=== PATIENT | female | born 1940 | race Caucasian/White ===

== ENCOUNTER → 2023-08-15 07:04 | Outpatient (REF) | payer MEDICARE, OTHER, SELFPAY ==
[2023-08-15 08:46] LABS: HDL Cholesterol 82 mg/dl; LDL Cholesterol, Calculated 79 mg/dl; Total Cholesterol 178 mg/dl (50-199); Triglyceride 89 mg/dl (10-149); Very Low Density Lipoprotein 17 mg/dl (0-30)
== END ==
LOC: HWLAB 07:04
PROVIDERS: ATTENDING PHYSICIAN Family Medicine
DX: E78.5 Hyperlipidemia, unspecified (principal)
CPT/HCPCS: 36415; 80061